=== PATIENT | male | born 1975 | race American Indian/Alaskan Native ===

== ENCOUNTER 2017-11-22 16:40 | Inpatient (IN) | payer MEDICAID, OTHER ==
[2017-11-22] MEDS: Albuterol-Ipratrop 3 mg / 0.5 (3 ml) UD IH SCH ×3 (17:31→18:00)
--- NOTE | 2017-11-22 17:41 | ED PDOC ---
Arrival/HPI - General Chief Complaint: Shortness Of Breath Time Seen by Provider: 11/22/17 16:45 - History of Present Illness Narrative History of Present Illness (Text): 11/22/17 17:39 Patient is a 42 y/o M with hx of asthma, uses nebulizer prn, presenting with wheezing. Patient reports that he has had a uri over the last few days and it was exacerbated his asthma. denies hx of intubations. Reports last steroid use 8 months ago. Reports productive cough. Denies fever. Denies chest pain. Past Medical History - Infectious Disease Hx of Infectious Diseases: None - Cardiac Hx Cardiac Disorders: Yes Hx Hypertension: Yes - Pulmonary Hx Respiratory Disorders: Yes Hx Asthma: Yes - Neurological Hx Neurological Disorder: No - HEENT Hx HEENT Disorder: No - Endocrine/Metabolic Hx Endocrine Disorders: Yes Hx Diabetes Mellitus Type 2: Yes - Hematological/Oncological Hx Blood Disorders: No - Integumentary Hx Dermatological Disorder: No - Musculoskeletal/Rheumatological Hx Musculoskeletal Disorders: No - Gastrointestinal Hx Gastrointestinal Disorders: No - Genitourinary/Gynecological Hx Genitourinary Disorders: No - Psychiatric Hx Psychophysiologic Disorder: No Hx Substance Use: No Family/Social History Family/Social History: No Known Family HX Smoking Status: Light Smoker < 10 Cigarettes Daily Hx Alcohol Use: Yes Frequency of alcohol use: Socially Hx Substance Use: No Allergies/Home Meds Allergies/Adverse Reactions: Allergies shellfish Allergy (Uncoded 11/22/17 16:56) RASH Home Medications: Home Meds Medication Instructions Recorded Confirmed Lisinopril [Zestril] 20 mg PO DAILY 06/20/16 11/22/17 amLODIPine [Norvasc] 10 mg PO DAILY 06/20/16 11/22/17 Carvedilol [Coreg] 25 mg PO BID 11/22/17 11/22/17 Fluticasone/Vilanterol [Breo 1 each IH PRN PRN 11/22/17 11/22/17 Ellipta 100-25 Mcg INH] Insulin Aspart Prot/Insuln Asp 6 unit SQ AC 11/22/17 11/22/17 [Novolog Mix 70-30 Vial] Insulin Detemir [Levemir] 15 unit SC BID 11/22/17 11/22/17 Review of Systems - Physician Review All systems were reviewed & negative as marked: Yes - Review of Systems ENT: absent: Hearing Changes Respiratory: SOB, Cough, Sputum, Wheezing Cardiovascular: absent: Chest Pain, Palpitations, Edema, Calf Pain, [place], Orthopnea, Syncope Gastrointestinal: absent: Abdominal Pain, Constipation, Diarrhea, Nausea, Vomiting Genitourinary Male: absent: Dysuria Psychiatric: absent: Anxiety Physical Exam Vital Signs Temp Pulse Resp BP Pulse Ox 11/22/17 19:48 96 H 10 L 178/116 H 100 11/22/17 19:30 96 H 22 158/93 H 100 11/22/17 17:00 25 H 100 11/22/17 16:55 97.5 F L 105 H 18 171/115 H 100 Temperature: Afebrile Blood Pressure: Hypertensive Pulse: Regular Respiratory Rate: Tachypneic Appearance: Positive for: Well-Appearing, Non-Toxic, Comfortable Pain Distress: None Mental Status: Positive for: Alert and Oriented X 3 - Systems Exam Head: Present: Atraumatic, Normocephalic Pupils: Present: PERRL Extroacular Muscles: Present: EOMI Conjunctiva: Present: Normal Mouth: Present: Moist Mucous Membranes Neck: Present: Normal Range of Motion Respiratory/Chest: Present: Good Air Exchange, Wheezes. No: Respiratory Distress Cardiovascular: Present: Regular Rate and Rhythm, Normal S1, S2. No: Murmurs Abdomen: No: Tenderness, Distention Upper Extremity: Present: Normal Inspection Lower Extremity: Present: Normal Inspection. No: Edema Neurological: Present: GCS=15, CN II-XII Intact Medical Decision Making ED Course and Treatment: 11/22/17 17:41 Symptoms consistent with asthma exacerbation 11/22/17 18:14 After 2 nebulizer treatments, patient has persistent wheezing and shortness of breath. EKG shows sinus tachycardia at 105bpm with t wave inversions in II,III , avf with no prior for comparison. 11/22/17 18:17 Cxray negative. Trop x 1 negative. BNP WNL. Patient on bipap with some improvement. Additional duonebs ordered 11/22/17 19:36 - Lab Interpretations Lab Results: 11/22/17 18:43 11/22/17 18:43 Lab Results 11/22/17 18:43: Sodium 135, Potassium 4.1, Chloride 101, Carbon Dioxide 22, Anion Gap 17, BUN 14, Creatinine 0.7 L, Est GFR ( Amer) > 60, Est GFR ( Non-Af Amer) > 60, Random Glucose 322 H*, Calcium 10.0, Total Bilirubin 0.8, AST 18, ALT 20, Alkaline Phosphatase 99, Total Creatine Kinase 176, Troponin I < 0.01, NT-Pro-B Natriuret Pep 11.4, Total Protein 8.3, Albumin 4.4, Globulin 3.9, Albumin/Globulin Ratio 1.1 11/22/17 18:43: WBC 9.6, RBC 4.79, Hgb 15.5, Hct 44.9, MCV 93.7, MCH 32.4, MCHC 34.5, RDW 12.8, Plt Count 224, MPV 11.6 H, Gran % 56.1, Lymph % (Auto) 27.2, [place] % (Auto) 10.1 H, Eos % (Auto) 6.2 H, Baso % (Auto) 0.4, Gran # 5.38, Lymph # (Auto) 2.6, [place] # (Auto) 1.0 H, Eos # (Auto) 0.6, Baso # (Auto) 0.04 - RAD Interpretation Radiology Orders: 11/22/17 17:19 CHEST PORTABLE [RAD] Stat - Medication Orders Current Medication Orders: Albuterol/Ipratropium (Duoneb 3 Mg/0.5 Mg (3 Ml) Ud) [address] [facility] Stop: 11/22/17 21:16 Albuterol/Ipratropium (Duoneb 3 Mg/0.5 Mg (3 Ml) Ud) 3 ml IH Q2H PRN PRN Reason: Wheezing Albuterol/Ipratropium (Duoneb 3 Mg/0.5 Mg (3 Ml) Ud) [address] [facility] Stop: 11/23/17 00:46 Amlodipine Besylate (Norvasc) [address] [facility] Carvedilol (Coreg) [address] [facility] Insulin Human Lispro (Humalog Med) [address] [facility] PRN Reason: Protocol Lisinopril (Zestril) [address] [facility] Loratadine (Claritin) 10 mg PO ONCE ONE Stop: 11/22/17 20:56 Loratadine (Claritin) [address] [facility] Methylprednisolone (Solu-Medrol) [address] [facility] Non-Formulary Medication (Fluticasone/Vilanterol [Breo Ellipta 100-25 Mcg Inh]) 1 each IH PRN PRN PRN Reason: Wheezing Discontinued Medications Albuterol/Ipratropium (Duoneb 3 Mg/0.5 Mg (3 Ml) Ud) 3 ml IH Q15M [facility] Stop: 11/22/17 18:01 Last Admin: 11/22/17 18:00 Dose: 3 ml Albuterol/Ipratropium (Duoneb 3 Mg/0.5 Mg (3 Ml) Ud) 3 ml IH Q4H PRN PRN Reason: Shortness of Breath Carvedilol (Coreg) 25 mg PO STAT STA Stop: 11/22/17 19:41 Last Admin: 11/22/17 20:09 Dose: Not Given Non-Admin Reason: Patient Refused Magnesium Sulfate 2 gm/ Sodium (Chloride) 104 mls @ 102 mls/hr IVPB ONCE ONE Stop: 11/22/17 19:16 Last Admin: 11/22/17 18:43 Dose: 102 mls/hr eMAR Start Stop Document 11/22/17 18:43 RG (Rec: 11/22/17 19:48 RG [id number]) Intravenous Solution Start Date 11/22/17 Start Time 18:43 Prednisone (Prednisone Tab) 60 mg PO STAT ONE Stop: 11/22/17 17:19 Last Admin: 11/22/17 17:37 Dose: 60 mg Disposition/Present on Arrival - Present on Arrival Any Indicators Present on Arrival: No History of DVT/PE: No History of Uncontrolled Diabetes: No Urinary Catheter: No History of Decub. Ulcer: No History Surgical Site Infection Following: None - Disposition Have Diagnosis and Disposition been Completed?: Yes Diagnosis: Asthma, Hypertension Disposition: HOSPITALIZED Disposition Time: 19:37 Patient Plan: Observation Patient Problems: Current Active Problems Problem Status Onset Asthma Acute Condition: FAIR
--- NOTE | 2017-11-22 18:01 | RAD ---
HISTORY: cough COMPARISON: No prior. FINDINGS: LUNGS: No active pulmonary disease. PLEURA: No significant pleural effusion identified, no pneumothorax apparent. CARDIOVASCULAR: Normal. OSSEOUS STRUCTURES: No significant abnormalities. VISUALIZED UPPER ABDOMEN: Normal. OTHER FINDINGS: None. IMPRESSION: No active disease.
[2017-11-22] MEDS ORDERED: Magnesium Sulfate 2 GM in Sodium Chloride 0.9% 100 ML IVPB ONE (18:15)
[2017-11-22 19:18] LABS: BASO # 0.04 K/mm3 (0.0-2.0); BASO % 0.4 % (0.0-3.0); EOS # 0.6 (0.0-0.7); EOS % 6.2 % (1.5-5.0); GRAN # 5.38 (1.4-6.5); GRAN % 56.1 % (50.0-68.0); HEMOGLOBIN 15.5 g/dL (14.0-18.0); LYMPH # 2.6 (1.2-3.4); LYMPH % 27.2 % (22.0-35.0); MEAN CELL VOLUME 93.7 fl (80.0-105.0); MEAN CORPUSCULAR HEMOGLOBIN 32.4 pg (25.0-35.0); MEAN CORPUSCULAR HGB CONC 34.5 g/dl (31.0-37.0); MEAN PLATELET VOLUME 11.6 fl (7.0-11.0); MONO % 10.1 % (1.0-6.0); RBC 4.79 10^6/uL (3.5-6.1); RED CELL DISTRIBUTION WIDTH 12.8 % (11.5-14.5); WHITE BLOOD COUNT 9.6 10^3/ul (4.5-11.0)
[2017-11-22 19:26] LABS: B-TYPE NATRIURETIC PEPTIDE 11.4 pg/mL (0-450); TROPONIN I < 0.01 ng/mL
[2017-11-22 19:30] LABS: ALB/GLOB RATIO 1.1 (1.1-1.8); ALBUMIN 4.4 g/dL (3.0-4.8); ALT/SGPT 20 U/L (7-56); AST/SGOT 18 U/L (17-59); BLOOD UREA NITROGEN 14 mg/dL (7-21); GFR AFRICAN-AMERICAN > 60; GFR NON-AFRICAN AMERICAN > 60
[2017-11-22] MEDS ORDERED: Albuterol-Ipratrop 3 mg / 0.5 (3 ml) UD IH PRN (19:33)
--- NOTE | 2017-11-22 20:03 | CP.PCM.HP ---
History of Present Illness - History of Present Illness History of Present Illness: Patty Harmon, PGY1, H&P for Dr Guzman: CC: wheezing 42 year old male with PMH asthma (no hx of intubation), HTN, DM2, presents for wheezing for past week. Pt states that he was having upper respiratory infection symptoms, like productive cough, chest congestion the previous week, which exacerbated his asthma. He was using his Advair and ventolin inhaler 4-5 times per day the past week, with nocturnal symptoms. Pt states that he feels anxious, is able to speak full sentences without SOB. He ran out of it today, requiring him to come to ED. Denies fever, chills, nausea, vomiting, cp, cough, abdominal pain, diarrhea, constipation, urinary symptoms, leg swelling, exertional angina. He states that he had a stress test done 3-4 years ago, with Dr Che with normal results. No flu shot this year. Denies sick contacts or recent travel. In ED, pt afebrile, tachycardic 105, hypertensive 171/115. received duonebx2, magso4 2 gm IV, prednisone 60 mg PO x1. Started on bipap. 12 point ROS obtained and negative, except as per HPI. 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 Smokes 1 ppd for 7-8 years. Drinks alcohol socially. No recreational drug use. PMD: Torres Present on Admission - Present on Admission Any Indicators Present on Admission: No History of DVT/PE: No History of Uncontrolled Diabetes: No Urinary Catheter: No Decubitus Ulcer Present: No Review of Systems - Review of Systems All systems: reviewed and no additional remarkable complaints except Review of Systems: as per HPI Past Patient History - Infectious Disease Hx of Infectious Diseases: None - Past Social History Smoking Status: Light Smoker < 10 Cigarettes Daily - CARDIAC Hx Cardiac Disorders: Yes Hx Hypertension: Yes - PULMONARY Hx Respiratory Disorders: Yes Hx Asthma: Yes - NEUROLOGICAL Hx Neurological Disorder: No - HEENT Hx HEENT Problems: No - ENDOCRINE/METABOLIC Hx Endocrine Disorders: Yes Hx Diabetes Mellitus Type 2: Yes - HEMATOLOGICAL/ONCOLOGICAL Hx Blood Disorders: No - INTEGUMENTARY Hx Dermatological Problems: No - MUSCULOSKELETAL/RHEUMATOLOGICAL Hx Musculoskeletal Disorders: No - GASTROINTESTINAL Hx Gastrointestinal Disorders: No - GENITOURINARY/GYNECOLOGICAL Hx Genitourinary Disorders: No - PSYCHIATRIC Hx Psychophysiologic Disorder: No Hx Substance Use: No - SURGICAL HISTORY Hx Surgeries: No Meds Allergies/Adverse Reactions: Allergies Allergy/AdvReac Type Severity Reaction Status Date / Time shellfish Allergy RASH Uncoded 11/22/17 16:56 Physical Exam - Constitutional Appears: Non-toxic, Older Than Stated Age, Agitated - Head Exam Head Exam: ATRAUMATIC, NORMOCEPHALIC - Eye Exam Eye Exam: EOMI, PERRL. absent: Conjunctival injection, Nystagmus, Periorbital swelling, Scleral icterus Pupil Exam: NORMAL ACCOMODATION, PERRL. absent: Fixed, Irregular, Unequal - ENT Exam ENT Exam: Mucous Membranes Moist - Neck Exam Neck exam: Positive for: Full Rom - Respiratory Exam Respiratory Exam: Wheezes (expiratory wheezing, bilaterally). absent: Accessory Muscle Use, Decreased Breath Sounds, Rales, Rhonchi, Respiratory Distress, Stridor Additional comments: on bipap - Cardiovascular Exam Cardiovascular Exam: RRR, +S1, +S2. absent: Systolic Murmur - GI/Abdominal Exam GI & Abdominal Exam: Normal Bowel Sounds, Soft. absent: Diminished Bowel Sounds , Distended, Firm, Mass, Rebound, Rigid, Tenderness - Extremities Exam Extremities exam: Positive for: normal inspection. Negative for: calf tenderness, pedal edema - Back Exam Back exam: NORMAL INSPECTION - Neurological Exam Neurological exam: Alert, Oriented x3 - Psychiatric Exam Psychiatric exam: Normal Affect, Normal Mood - Skin Skin Exam: Dry, Normal Color, Warm Results - Vital Signs Recent Vital Signs: Last Vital Signs Temp 97.5 F L 11/22/17 16:55 Pulse 96 H 11/22/17 19:48 Resp 10 L 11/22/17 19:48 BP 178/116 H 11/22/17 19:48 Pulse Ox 100 11/22/17 19:48 - Labs Result Diagrams: 11/22/17 18:43 11/22/17 18:43 Labs: Laboratory Results - last 24 hr 11/22/17 11/22/17 18:43 18:43 WBC 9.6 RBC 4.79 Hgb 15.5 Hct 44.9 MCV 93.7 MCH 32.4 MCHC 34.5 RDW 12.8 Plt Count 224 MPV 11.6 H Gran % 56.1 Lymph % (Auto) 27.2 [place] % (Auto) 10.1 H Eos % (Auto) 6.2 H Baso % (Auto) 0.4 Gran # 5.38 Lymph # (Auto) 2.6 [place] # (Auto) 1.0 H Eos # (Auto) 0.6 Baso # (Auto) 0.04 Sodium 135 Potassium 4.1 Chloride 101 Carbon Dioxide 22 Anion Gap 17 BUN 14 Creatinine 0.7 L Est GFR ( Amer) > 60 Est GFR (Non-Af Amer) > 60 Random Glucose 322 H* Calcium 10.0 Total Bilirubin 0.8 AST 18 ALT 20 Alkaline Phosphatase 99 Total Creatine Kinase 176 Troponin I < 0.01 NT-Pro-B Natriuret Pep 11.4 Total Protein 8.3 Albumin 4.4 Globulin 3.9 Albumin/Globulin Ratio 1.1 Assessment & Plan - Assessment and Plan (Free Text) Assessment: 42 year old male with PMH asthma, HTN, DM2, presents for wheezing: Wheezin/2 asthma exacerbation/allergies, smoking history (COPD) - Prednisone 60 mg PO x1, duonebx1, magso4 2 gm IVx1 given in ED - Pt put on bipap. will wean down. - ABG shows pH 7.30, pCO2 47, pO2 159 on 40% FiO2 - Methylprednisolone 40 mg IV BID, Duoneb q4h diya, q2h prn - Claritin - trop neg x1. EKG shows sinus tachycardia at 105bpm with t wave inversions in II,III, avf with no prior for comparison. - serial trops, EKG in AM Hx of Tobacco abuse: - Advised cessation - nicotine patch Hx of HTN: - C/w home med lisinopril, norvasc - will hold BB in setting of bronchospasm - Cont to monitor Hx of DM: - ISS-med - Hgb A1C - Cont to monitor Discussed with Dr Guzman. - Date & Time Date: 11/22/17 Time: 21:39
[2017-11-22 20:26] LABS: ARTERIAL BLOOD GAS HCO3 23.1 mmol/L (21-28); ARTERIAL BLOOD GAS O2 SAT 100.1 % (95-98); ARTERIAL BLOOD GAS PCO2 47 mm/Hg (35-45); ARTERIAL BLOOD GAS TCO2 24.5 mmol.L (22-28)
[2017-11-22] MEDS ORDERED: Albuterol-Ipratrop 3 mg / 0.5 (3 ml) UD IH SCH ×3 (20:45→21:15)
[2017-11-22] MEDS ORDERED: FLUTICASONE IH PRN (20:46)
[2017-11-22] MEDS ORDERED: VILANTEROL IH PRN (20:46)
[2017-11-22] MEDS: MethylPREDNISolone 40 mg Vial IVP SCH (21:22)
[2017-11-22] MEDS: Albuterol-Ipratrop 3 mg / 0.5 (3 ml) UD IH PRN (21:44)
[2017-11-22] MEDS ORDERED: Fluticasone-Salmeterol 250-50mcg Diskus IH SCH (22:00)
[2017-11-22] MEDS: Insulin Lispro (humaLOG) MEDIUM Coverage SC SCH (22:20)
--- NOTE | 2017-11-22 22:25 | CARD ---
APPROVED REPORT EKG Measurement Heart [id number] <Conclusion> Sinus tachycardia Septal infarct, age undetermined T wave abnormality, consider inferior ischemia Abnormal ECG
[2017-11-23] MEDS: Albuterol-Ipratrop 3 mg / 0.5 (3 ml) UD IH PRN ×4 (00:57→21:43)
[2017-11-23] MEDS ORDERED: Influenza Vaccine 60 mcg/0.5 mL SYR (4YR UP) IM ONE (01:46)
[2017-11-23] MEDS ORDERED: Pneumococcal 23-Valent Vaccine IM ONE (01:46)
[2017-11-23 07:19] LABS: ALB/GLOB RATIO 1.2 (1.1-1.8); ALBUMIN 4.3 g/dL (3.0-4.8); ALT/SGPT 26 U/L (7-56); AST/SGOT 19 U/L (17-59); BLOOD UREA NITROGEN 18 mg/dL (7-21); CALCIUM 10.3 mg/dL (8.4-10.5); GFR AFRICAN-AMERICAN > 60; GFR NON-AFRICAN AMERICAN > 60
[2017-11-23] MEDS: Arformoterol 15 mcg/2 ml Inh Sol IH SCH ×2 (07:23→21:42)
[2017-11-23] MEDS: Budesonide 0.5 mg/2 ml Inhal Susp UD IH SCH ×2 (07:24→21:43)
[2017-11-23 08:08] LABS: BASO # 0.01 K/mm3 (0.0-2.0); BASO % 0.1 % (0.0-3.0); GRAN # 9.75 (1.4-6.5); HEMOGLOBIN 15.9 g/dL (14.0-18.0); LYMPH # 1.1 (1.2-3.4); LYMPH % 10.2 % (22.0-35.0); MEAN CELL VOLUME 93.2 fl (80.0-105.0); MEAN CORPUSCULAR HEMOGLOBIN 32.6 pg (25.0-35.0); MEAN CORPUSCULAR HGB CONC 34.9 g/dl (31.0-37.0); MEAN PLATELET VOLUME 11.7 fl (7.0-11.0); MONO # 0.1 (0.1-0.6); MONO % 0.7 % (1.0-6.0); RBC 4.88 10^6/uL (3.5-6.1)
[2017-11-23] MEDS: MethylPREDNISolone 40 mg Vial IVP SCH ×2 (09:17→21:06)
[2017-11-23] MEDS: Insulin Lispro (humaLOG) MEDIUM Coverage SC SCH ×4 (09:17→21:19)
--- NOTE | 2017-11-23 17:30 | CARD ---
APPROVED REPORT EKG Measurement Heart [id number] [place] 134P64 [id number] <Conclusion> Normal sinus rhythm Nonspecific T wave abnormality Abnormal ECG
--- NOTE | 2017-11-23 17:36 | CARD ---
APPROVED REPORT EKG Measurement Heart [id number] RI 130P72 [id number] <Conclusion> Normal sinus rhythm Normal ECG
[2017-11-23 18:25] VITALS: RESP 20
[2017-11-24] MEDS: Albuterol-Ipratrop 3 mg / 0.5 (3 ml) UD IH PRN ×2 (02:05→11:46)
[2017-11-24 06:50] LABS: ALB/GLOB RATIO 1.2 (1.1-1.8); ALBUMIN 4.1 g/dL (3.0-4.8); ALT/SGPT 22 U/L (7-56); AST/SGOT 20 U/L (17-59); BLOOD UREA NITROGEN 21 mg/dL (7-21); GFR AFRICAN-AMERICAN > 60; GFR NON-AFRICAN AMERICAN > 60
[2017-11-24 07:00] LABS: GRAN # 11.01 (1.4-6.5); GRAN % 83.2 % (50.0-68.0); HEMOGLOBIN 14.9 g/dL (14.0-18.0); LYMPH # 1.6 (1.2-3.4); LYMPH % 11.7 % (22.0-35.0); MEAN CELL VOLUME 93.4 fl (80.0-105.0); MEAN CORPUSCULAR HEMOGLOBIN 31.7 pg (25.0-35.0); MEAN CORPUSCULAR HGB CONC 33.9 g/dl (31.0-37.0); MEAN PLATELET VOLUME 11.7 fl (7.0-11.0); MONO # 0.7 (0.1-0.6); MONO % 5.1 % (1.0-6.0); RBC 4.7 10^6/uL (3.5-6.1); RED CELL DISTRIBUTION WIDTH 12.8 % (11.5-14.5); WHITE BLOOD COUNT 13.2 10^3/ul (4.5-11.0)
[2017-11-24] MEDS: Arformoterol 15 mcg/2 ml Inh Sol IH SCH (07:41)
[2017-11-24] MEDS: Budesonide 0.5 mg/2 ml Inhal Susp UD IH SCH (07:42)
[2017-11-24 08:31] VITALS: BP 144/91; TEMP 98; O2SAT 97
[2017-11-24] MEDS: Insulin Lispro (humaLOG) MEDIUM Coverage SC SCH ×2 (08:33→12:02)
[2017-11-24] MEDS: MethylPREDNISolone 40 mg Vial IVP SCH (09:46)
--- NOTE | 2017-11-24 10:22 | CP.PCM.DIS ---
<John Laureano - Last Filed: 11/25/17 13:56> Provider - Provider Date of Admission: 11/23/17 08:26 Attending physician: Keven Arias MD Primary care physician: Phillip Torres APN Time Spent in preparation of Discharge (in minutes): 75 Hospital Course - Lab Results Lab Results: Most Recent Lab Values WBC 13.2 10^3/ul (4.5-11.0) H 11/24/17 05:00 RBC 4.70 10^6/uL (3.5-6.1) 11/24/17 05:00 Hgb 14.9 g/dL (14.0-18.0) 11/24/17 05:00 Hct 43.9 % (42.0-52.0) 11/24/17 05:00 MCV 93.4 fl (80.0-105.0) 11/24/17 05:00 MCH 31.7 pg (25.0-35.0) 11/24/17 05:00 MCHC 33.9 g/dl (31.0-37.0) 11/24/17 05:00 RDW 12.8 % (11.5-14.5) 11/24/17 05:00 Plt Count 244 10^3/uL (120.0-450.0) 11/24/17 05:00 MPV 11.7 fl (7.0-11.0) H 11/24/17 05:00 Gran % 83.2 % (50.0-68.0) H 11/24/17 05:00 Lymph % (Auto) 11.7 % (22.0-35.0) L 11/24/17 05:00 [place] % (Auto) 5.1 % (1.0-6.0) 11/24/17 05:00 Eos % (Auto) 0.0 % (1.5-5.0) L 11/24/17 05:00 Baso % (Auto) 0.0 % (0.0-3.0) 11/24/17 05:00 Gran # 11.01 (1.4-6.5) H 11/24/17 05:00 Lymph # (Auto) 1.6 (1.2-3.4) 11/24/17 05:00 [place] # (Auto) 0.7 (0.1-0.6) H 11/24/17 05:00 Eos # (Auto) 0.0 (0.0-0.7) 11/24/17 05:00 Baso # (Auto) 0.00 K/mm3 (0.0-2.0) 11/24/17 05:00 pCO2 47 mm/Hg (35-45) H 11/22/17 20:24 pO2 159.0 mm/Hg (80-100) H 11/22/17 20:24 HCO3 23.1 mmol/L (21-28) 11/22/17 20:24 ABG pH 7.30 (7.35-7.45) L 11/22/17 20:24 ABG Total CO2 24.5 mmol.L (22-28) 11/22/17 20:24 ABG O2 Saturation 100.1 % (95-98) H 11/22/17 20:24 ABG Base Excess -3.6 mmol/L (-2.0-3.0) L 11/22/17 20:24 ABG Potassium 4.0 mmol/L (3.6-5.2) 11/22/17 20:24 Sodium 135.0 mmol/L (132-148) 11/22/17 20:24 Chloride 102.0 mmol/L (98-107) 11/22/17 20:24 Glucose 309 mg/dl (75-110) H 11/22/17 20:24 Lactate 0.7 mmol/L (0.7-2.1) 11/22/17 20:24 FiO2 40.0 % 11/22/17 20:24 Inspiratory BiPAP 10 11/22/17 20:24 Sodium 135 mmol/L (132-148) 11/24/17 05:00 Potassium 4.4 mmol/L (3.6-5.0) 11/24/17 05:00 Chloride 99 mmol/L (98-107) 11/24/17 05:00 Carbon Dioxide 24 mmol/L (21-33) 11/24/17 05:00 Anion Gap 17 (10-20) 11/24/17 05:00 BUN 21 mg/dL (7-21) 11/24/17 05:00 Creatinine 0.8 mg/dl (0.8-1.5) 11/24/17 05:00 Est GFR ( Amer) > 60 11/24/17 05:00 Est GFR (Non-Af Amer) > 60 11/24/17 05:00 POC Glucose (mg/dL) 353 mg/dL (65-110) H 11/24/17 07:27 Random Glucose 441 mg/dL (70-110) H* 11/24/17 05:00 Hemoglobin A1c 12.4 % (4.2-6.5) H 11/22/17 18:43 Calcium 10.0 mg/dL (8.4-10.5) 11/24/17 05:00 Total Bilirubin 0.8 mg/dL (0.2-1.3) 11/24/17 05:00 AST 20 U/L (17-59) 11/24/17 05:00 ALT 22 U/L (7-56) 11/24/17 05:00 Alkaline Phosphatase 86 U/L (38-126) 11/24/17 05:00 Total Creatine Kinase 176 U/L (35-230) 11/22/17 18:43 Troponin I < 0.01 ng/mL 11/23/17 06:15 NT-Pro-B Natriuret Pep 11.4 pg/mL (0-450) 11/22/17 18:43 Total Protein 7.7 g/dL (5.8-8.3) 11/24/17 05:00 Albumin 4.1 g/dL (3.0-4.8) 11/24/17 05:00 Globulin 3.5 gm/dL 11/24/17 05:00 Albumin/Globulin Ratio 1.2 (1.1-1.8) 11/24/17 05:00 Arterial Blood Potassium 4.0 mmol/L (3.6-5.2) 11/22/17 20:24 - Hospital Course Hospital Course: 42 year old male with PMH asthma, HTN, DM2, presented for wheezing. Patient was found to have asthma exacerbation, possibly to smoking. He was initially given BIPAP, Prednisone 60 mg PO x1, duonebx1, magso4 2 gm IVx1. Initial ABG shows pH 7.30, pCO2 47, pO2 159 on 40% FiO2. She was placed on Methylprednisolone 40 mg IV BID, Duoneb q4h diya, q2h prn. He was also given claritin. Chest xray did not show any active disease. Trops were trended and negative. EKG showed sinus tachycardia at 105bpm. Patient was counseled on tobacco use and the risks especially with his asthma. He was given a nicotine patch. Patient blood pressure was monitored and home medications were continued. Patients wheezing improved, he was able to ambulate without shortness of breath. He was discharged with albuterol inhaler, medrol dose andre, Claritin, nicotine patch and antibiotics to take for 3 days. He was also given a dose of antibiotics during his stay here. Discharge Exam - Head Exam Head Exam: ATRAUMATIC, NORMOCEPHALIC - Eye Exam Eye Exam: Normal appearance - Respiratory Exam Respiratory Exam: Wheezes - Cardiovascular Exam Cardiovascular Exam: REGULAR RHYTHM - GI/Abdominal Exam GI & Abdominal Exam: Normal Bowel Sounds - Neurological Exam Neurological exam: Alert, CN II-XII Intact, Oriented x3 Discharge Plan - Discharge Medications Prescriptions: Albuterol HFA [Ventolin HFA 90 mcg/actuation (8 g)] 1 puff IH Q6 #1 puff Azithromycin [Zithromax Tri-Andre] 500 mg PO DAILY #3 tablet Fluticasone/Salmeterol [Advair 250-50 Diskus] 1 each IH PRN PRN #1 blst.w.dev PRN Reason: Shortness Of Breath Loratadine [Claritin] 10 mg PO DAILY #10 tab Methylprednisolone [Medrol Dose Pack (21 tabs)] See Taper PO DAILY #21 mg Nicotine 14 mg/24 hr [Nicoderm CQ] 1 patch TD DAILY #10 patch - Follow Up Plan Condition: FAIR Disposition: HOME/ ROUTINE Instructions: Asthma (DC), Asthma (GEN) Referrals: Phillip Torres APN [Primary Care Provider] - <Keven Arias - Last Filed: 11/25/17 18:24> Provider - Provider Date of Admission: 11/23/17 08:26 Attending physician: Keven Arias MD Primary care physician: Phillip Torres APN Hospital Course - Lab Results Lab Results: Most Recent Lab Values WBC 13.2 10^3/ul (4.5-11.0) H 11/24/17 05:00 RBC 4.70 10^6/uL (3.5-6.1) 11/24/17 05:00 Hgb 14.9 g/dL (14.0-18.0) 11/24/17 05:00 Hct 43.9 % (42.0-52.0) 11/24/17 05:00 MCV 93.4 fl (80.0-105.0) 11/24/17 05:00 MCH 31.7 pg (25.0-35.0) 11/24/17 05:00 MCHC 33.9 g/dl (31.0-37.0) 11/24/17 05:00 RDW 12.8 % (11.5-14.5) 11/24/17 05:00 Plt Count 244 10^3/uL (120.0-450.0) 11/24/17 05:00 MPV 11.7 fl (7.0-11.0) H 11/24/17 05:00 Gran % 83.2 % (50.0-68.0) H 11/24/17 05:00 Lymph % (Auto) 11.7 % (22.0-35.0) L 11/24/17 05:00 [place] % (Auto) 5.1 % (1.0-6.0) 11/24/17 05:00 Eos % (Auto) 0.0 % (1.5-5.0) L 11/24/17 05:00 Baso % (Auto) 0.0 % (0.0-3.0) 11/24/17 05:00 Gran # 11.01 (1.4-6.5) H 11/24/17 05:00 Lymph # (Auto) 1.6 (1.2-3.4) 11/24/17 05:00 [place] # (Auto) 0.7 (0.1-0.6) H 11/24/17 05:00 Eos # (Auto) 0.0 (0.0-0.7) 11/24/17 05:00 Baso # (Auto) 0.00 K/mm3 (0.0-2.0) 11/24/17 05:00 pCO2 47 mm/Hg (35-45) H 11/22/17 20:24 pO2 159.0 mm/Hg (80-100) H 11/22/17 20:24 HCO3 23.1 mmol/L (21-28) 11/22/17 20:24 ABG pH 7.30 (7.35-7.45) L 11/22/17 20:24 ABG Total CO2 24.5 mmol.L (22-28) 11/22/17 20:24 ABG O2 Saturation 100.1 % (95-98) H 11/22/17 20:24 ABG Base Excess -3.6 mmol/L (-2.0-3.0) L 11/22/17 20:24 ABG Potassium 4.0 mmol/L (3.6-5.2) 11/22/17 20:24 Sodium 135.0 mmol/L (132-148) 11/22/17 20:24 Chloride 102.0 mmol/L (98-107) 11/22/17 20:24 Glucose 309 mg/dl (75-110) H 11/22/17 20:24 Lactate 0.7 mmol/L (0.7-2.1) 11/22/17 20:24 FiO2 40.0 % 11/22/17 20:24 Inspiratory BiPAP 10 11/22/17 20:24 Sodium 135 mmol/L (132-148) 11/24/17 05:00 Potassium 4.4 mmol/L (3.6-5.0) 11/24/17 05:00 Chloride 99 mmol/L (98-107) 11/24/17 05:00 Carbon Dioxide 24 mmol/L (21-33) 11/24/17 05:00 Anion Gap 17 (10-20) 11/24/17 05:00 BUN 21 mg/dL (7-21) 11/24/17 05:00 Creatinine 0.8 mg/dl (0.8-1.5) 11/24/17 05:00 Est GFR ( Amer) > 60 11/24/17 05:00 Est GFR (Non-Af Amer) > 60 11/24/17 05:00 POC Glucose (mg/dL) 286 mg/dL (65-110) H 11/24/17 11:17 Random Glucose 441 mg/dL (70-110) H* 11/24/17 05:00 Hemoglobin A1c 12.4 % (4.2-6.5) H 11/22/17 18:43 Calcium 10.0 mg/dL (8.4-10.5) 11/24/17 05:00 Total Bilirubin 0.8 mg/dL (0.2-1.3) 11/24/17 05:00 AST 20 U/L (17-59) 11/24/17 05:00 ALT 22 U/L (7-56) 11/24/17 05:00 Alkaline Phosphatase 86 U/L (38-126) 11/24/17 05:00 Total Creatine Kinase 176 U/L (35-230) 11/22/17 18:43 Troponin I < 0.01 ng/mL 11/23/17 06:15 NT-Pro-B Natriuret Pep 11.4 pg/mL (0-450) 11/22/17 18:43 Total Protein 7.7 g/dL (5.8-8.3) 11/24/17 05:00 Albumin 4.1 g/dL (3.0-4.8) 11/24/17 05:00 Globulin 3.5 gm/dL 11/24/17 05:00 Albumin/Globulin Ratio 1.2 (1.1-1.8) 11/24/17 05:00 Arterial Blood Potassium 4.0 mmol/L (3.6-5.2) 11/22/17 20:24 Attending/Attestation - Attestation I have personally seen and examined this patient.: Yes I have fully participated in the care of the patient.: Yes I have reviewed all pertinent clinical information, including history, physical exam and plan: Yes Notes (Text): 11/25/17 18:22 attending note; Patient seen and examined with resident. patient is a 42-year-old male with a history of hypertension, diabetes, asthma, seasonal allergies, smoker is admitted with acute asthma exacerbation. Treated with oxygen, DuoNeb, IV Solu-Medrol. Currently with stable respiratory status. Patient is ambulating fine. No hypoxia. Patient will be discharged home with by mouth prednisone, albuterol, Advair, Zithromax. Patient uses breo at home. Active smoking; smoking cessation is strongly advised. on NicoDerm patch. upon discharge the patient will follow up with PMD Dr. Torres 11/25/17 18:24
[2017-11-24 12:20] VITALS: PULSE 85
== END 2017-11-24 14:07 | disposition home or self-care (01) | DRG 96 ==
LOC: ED 16:40 → ERH 19:33 → 3RNO 22:31 → OBSVTOIN 11-23 08:26 → 3RNO 11-23 12:55
PROVIDERS: ADMIT Internal Medicine; ATTEND Internal Medicine
DX: J45.901 Unspecified asthma with (acute) exacerbation (principal); J44.9 Chronic obstructive pulmonary disease, unspecified; E11.9 Type 2 diabetes mellitus without complications; I10 Essential (primary) hypertension; F17.210 Nicotine dependence, cigarettes, uncomplicated; Z79.4 Long term (current) use of insulin; Z91.013 Allergy to seafood; R40.2412 Glasgow coma scale score 13-15, at arrival to emergency department